=== PATIENT | female | born 1970 | race Caucasian/White ===

== ENCOUNTER → 2021-06-11 | Outpatient (CLI) | payer OTHER ==
--- NOTE | 2021-06-11 21:04 | MR ---
EXAMINATION TYPE: MR lumbar spine wo con DATE OF EXAM: 06/11/2021 COMPARISON: NONE HISTORY: Low back pain, pain and weakness in legs TECHNIQUE: Multiplanar, multisequence imaging of the lumbar spine is performed without IV contrast. FINDINGS: Sagittal images of the lumbar spine show vertebral body heights and alignment to appear sat isfactory. Multilevel disc desiccation. Mild to moderate disc space narrowing L5-S1 level. The conus medullaris is normal in position and signal ending at L1-L2 disc space level. The bone marrow signa l intensity is within normal limits. Mild multilevel anterior spurring. Axial images show T12-L1, L1-L2, L2-L3, and L3-L4 levels all to appear within normal limits. Axial images at L4-L5 level show focal central disc protrusion effacing the anterior thecal sac along with mild facet arthropathy and ligamentum flavum hypertrophy bilaterally with some effacement of th e left posterolateral thecal sac. Patent bilateral neural foramina. Axial images at L5-S1 level show lobulated posterior disc protrusion but spinal canal is preserved. T here is mild asymmetric right-sided inferior neural foraminal narrowing. Paraspinal muscle bulk is maintained. IMPRESSION: Degenerative changes lower lumbar spine as detailed above. No large eccentric disc hernia tion identified to account for radiculopathy type symptoms however.
== END | disposition home or self-care (01) ==
LOC: RADMRIMAIN 19:14
PROVIDERS: ATTEND Physical Medicine & Rehabilitation
DX: M47.816 Spondylosis without myelopathy or radiculopathy, lumbar region (principal)
CPT/HCPCS: 72148